=== PATIENT | female | born 2000 | race Caucasian/White ===

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

== ENCOUNTER 2018-01-05 23:58 | Emergency (ER) | payer OTHER ==
[~2018-01-05] VITALS: Ht 154.9 cm; Wt 54.4 kg
[2018-01-06 00:03] VITALS: BP 107/73
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
--- NOTE | 2018-01-06 01:45 | RADIOLOGY REPORT ---
EXAMINATION: XR ANKLE, RIGHT CLINICAL INFORMATION: Injury to the right ankle. COMPARISON: None TECHNIQUE: 2 views of the right ankle. FINDINGS: No fracture or dislocation. Alignment is anatomic. No ankle joint effusion. The soft tissues are unremarkable. IMPRESSION: No fracture or malalignment.
== END 2018-01-06 02:10 ==
LOC: ERH 23:58
DX: S93.401A Sprain of unspecified ligament of right ankle, initial encounter (principal); W17.2XXA Fall into hole, initial encounter; Y93.01 Activity, walking, marching and hiking; Y92.9 Unspecified place or not applicable
CPT/HCPCS: 73600-RT; 81025